=== PATIENT | female | born 1945 | race African-American/Black ===

== ENCOUNTER → 2017-01-08 | Outpatient (CLI) | payer MEDICARE, OTHER ==
--- NOTE | 2017-01-08 16:08 | RADIOLOGY REPORT (SQ) ---
EXAM DESCRIPTION: NM GASTRIC EMPTYING STUDY COMPLETED DATE/TIME: 01/08/2017 1:41 pm REASON FOR STUDY: ABDOMINAL DISTENSION (GASEOUS) R14.0 ABDOMINAL DISTENSION (GASEOUS) COMPARISON: None. RADIONUCLIDE AND DOSE: 2 millicuries Tc-99m Sulfur Colloid The route of agent administration: Oral. In an egg salad sandwich TECHNIQUE: Serial images acquired to 90 minutes with each image recorded over a 2-minute time frame. Image intensity values plotted with respect to time with linear regression algorithm. LIMITATIONS: None. FINDINGS: CALCULATED VALUE: 41.8 %. NORMAL VALUE: Greater than 50% emptying at 90 minutes. OTHER: No other significant finding. IMPRESSION: ABNORMAL GASTRIC EMPTYING. TECHNICAL DOCUMENTATION: JOB ID: [id number] [employer]- All Rights Reserved
== END ==
LOC: RAD 08:02
PROVIDERS: ATTEND Internal Medicine Gastroenterology
DX: R14.0 Abdominal distension (gaseous) (principal)
CPT/HCPCS: 78264; A9541

== ENCOUNTER → 2017-03-12 | Outpatient (CLI) | payer MEDICARE, OTHER ==
--- NOTE | 2017-03-12 15:19 | RADIOLOGY REPORT (SQ) ---
EXAM DESCRIPTION: C SP 4 OR 5 VIEWS COMPLETED DATE/TIME: 03/12/2017 3:02 pm REASON FOR STUDY: CERVICALGIA M54.2 CERVICALGIA COMPARISON: None. NUMBER OF VIEWS: Five views. TECHNIQUE: AP, lateral, obliques and odontoid radiographic images acquired of the cervical spine. LIMITATIONS: None. FINDINGS: MINERALIZATION: Normal. ALIGNMENT: Anatomic. VERTEBRAE: No acute compression changes are seen. There is some loss of height of the C3, C4, C5, an d C6 vertebrae. This appears chronic. Anterior osteophytes are present these levels. DISCS: Disc spaces are narrowed from C3-C5 and at C6-7. FORAMINA: No osteophytes or foraminal narrowing. LATERAL AND POSTERIOR ELEMENTS: Facets, lateral masses and spinous processes without significant find ings. HARDWARE: None in the spine. SOFT TISSUES: No masses or calcifications. Lung apices clear. OTHER: No other significant finding. IMPRESSION: Degenerative disc disease and spondylosis with no acute abnormality. There does not jerad ear to be significant foraminal narrowing. TECHNICAL DOCUMENTATION: JOB ID: [id number] [employer]- All Rights Reserved
== END ==
LOC: OD 14:47
PROVIDERS: ATTEND Family Medicine
DX: M54.2 Cervicalgia (principal)
CPT/HCPCS: 72050

== ENCOUNTER → 2017-09-28 | Outpatient (CLI) | payer MEDICARE, OTHER ==
--- NOTE | 2017-09-28 09:19 | WOMENS IMAGING REPORT ---
EXAM DESCRIPTION: BONE DENSITY HIP/SPINE COMPLETED DATE/TIME: 09/28/2017 8:34 am REASON FOR STUDY: AGE-RELATED OSTEOPROSIS; M81.0 M81.0 AGE-RELATED OSTEOPOROSIS W/O CURRENT PATHOLO AVA FRA COMPARISON: September 2006 TECHNIQUE: Dual-Energy X-ray Absorptiometry (DEXA) of the AP Spine and Hip. LIMITATIONS: None. FINDINGS: LUMBAR SPINE: The bone mineral density (BMD) measured from L1-L4 in the AP projection correlates with a T-score of 1.6, which is normal as defined by the World Health Organization. 42.3% increase as compared to the previous study HIP: The bone mineral density (BMD) measured in the left hip correlates with a T-score of -2.2, which is o steopenia as defined by the World Health Organization. -7.0% decrease as compared to the previous st ud IMPRESSION: 1. LUMBAR SPINE: Normal 2. HIP: Osteopenia COMMENT: The World Health Organization defines low BMD as follows: T-score: Normal: Greater than -1.0 Osteopenia: Between -1.0 and -2.5 Osteoporosis: Less than -2.5 without fractures Established osteoporosis: Less than -2.5 with fractures In general, you may wish to consider: Diagnosis Treatment Follow-up DEXA Normal BMD Prevention 2-3 years Osteopenia Prevention/Therapy 1-2 years Osteoporosis Therapy Yearly TECHNICAL DOCUMENTATION: JOB ID: [id number]- All Rights Reserved Reading location - IP/workstation name: [email or web address]
== END ==
LOC: WI 08:17
PROVIDERS: ATTEND Family Medicine
DX: M81.0 Age-related osteoporosis without current pathological fracture (principal)
CPT/HCPCS: 77080

== ENCOUNTER → 2019-07-28 | Outpatient (CLI) | payer MEDICARE, OTHER ==
--- NOTE | 2019-07-28 16:23 | RADIOLOGY REPORT (SQ) ---
EXAM DESCRIPTION: HIP LEFT AP/LATERAL COMPLETED DATE/TIME: 07/28/2019 3:13 pm REASON FOR STUDY: INJURY OF LEFT HIP;ACUTE JAMIN. LOW BACK PAIN WITH LEFT-SIDED SCIATICA M54.42 LUMBA GO WITH SCIATICA, LEFT SIDE S79.912A UNSPECIFIED INJURY OF LEFT HIP, INITIAL ENCOUNTER COMPARISON: None. NUMBER OF VIEWS: Two views. TECHNIQUE: AP pelvis and additional frog-leg view of the left hip. LIMITATIONS: None. FINDINGS: MINERALIZATION: Normal. LEFT HIP: No fracture or dislocation. No worrisome bone lesions. RIGHT HIP: No fracture or dislocation. No worrisome bone lesions. PUBIS AND ISCHIUM: No fracture. PELVIS: No fracture. SACRUM: No fracture or dislocation. No worrisome bone lesions. LOWER LUMBAR SPINE: Lower lumbar degenerative disc disease and spondylosis. SOFT TISSUES: No findings. OTHER: No other significant finding. IMPRESSION: Normal hip. Lumbar degenerative changes. TECHNICAL DOCUMENTATION: JOB ID: [id number] [employer]- All Rights Reserved Reading location - IP/workstation name: [email or web address]
--- NOTE | 2019-07-28 16:25 | RADIOLOGY REPORT (SQ) ---
EXAM DESCRIPTION: LUMBAR SPINE COMPLETE COMPLETED DATE/TIME: 07/28/2019 3:13 pm REASON FOR STUDY: LUMBAGO WITH SCIATICA, LEFT SIDE M54.42 LUMBAGO WITH SCIATICA, LEFT SIDE S79.912A UNSPECIFIED INJURY OF LEFT HIP, INITIAL ENCOUNTER COMPARISON: None. NUMBER OF VIEWS: Five views including obliques. TECHNIQUE: AP, lateral, oblique, and sacral radiographic images acquired of the lumbar spine. LIMITATIONS: None. FINDINGS: MINERALIZATION: Normal. SEGMENTATION: Normal. No transitional anatomy. ALIGNMENT: Mild anterolisthesis of L5 on S1. Mild levoscoliosis. VERTEBRAE: Maintained height. No fracture or worrisome bone lesion. DISCS: Disc spaces are narrowed from L2 to L5 with small marginal osteophytes. POSTERIOR ELEMENTS: Hypertrophic facet changes are present from L4-S1. HARDWARE: None in the spine. PARASPINAL SOFT TISSUES: Normal. PELVIS: Intact as visualized. No fractures or worrisome bone lesions. SI joints intact. OTHER: No other significant finding. IMPRESSION: Scoliosis. Anterolisthesis of L5 on S1. Spondylosis. Facet arthropathy. Degenerative disc disease. TECHNICAL DOCUMENTATION: JOB ID: [id number]- All Rights Reserved Reading location - IP/workstation name: [email or web address]
== END ==
LOC: OD 14:53
PROVIDERS: ATTEND Family Medicine
DX: S79.912A Unspecified injury of left hip, initial encounter (principal); X58.XXXA Exposure to other specified factors, initial encounter; M51.16 Intervertebral disc disorders with radiculopathy, lumbar region; M41.86 Other forms of scoliosis, lumbar region
CPT/HCPCS: 72110

== ENCOUNTER 2019-09-12 11:00 | Emergency (ER) | payer MEDICARE, OTHER ==
[2019-09-12 11:05] VITALS: BP 140/63
--- NOTE | 2019-09-12 11:24 | ER Document Report ---
HPI - HPI Time Seen by Provider: 09/12/19 11:15 Pain Level: 1 Notes: Patient is a 74-year-old female with a history of high blood pressure who presents complaining of left lower jaw pain is been present for the past 2 days. She has noticed some dryness to her throat, h/o tonsillectomy otherwise. She is able to eat and drink without difficulty. She is urinating normally and having normal bowel movements. Patient is aware that her dentition is poor otherwise. She has no other concerns or complaints. No drooling or hoarseness. Denies any headache, fever, head injury, neck pain, changes in vision/speech/mentation/hearing, URI, chest pain, palpitations, syncope, cough, shortness of breath, wheeze, dyspnea, abdominal pain, nausea/vomiting/diarrhea, urinary retention, dysuria, hematuria, or rash. - ROS Systems Reviewed and Negative: Yes All other systems reviewed and negative Past Medical History - Social History Smoking Status: Never Smoker Family History: Reviewed & Not Pertinent Patient has suicidal ideation: No Patient has homicidal ideation: No - Past Medical History Cardiac Medical History: Reports: Hx Hypercholesterolemia, Hx Hypertension GI Medical History: Reports: Hx Gastroesophageal Reflux Disease Past Surgical History: Reports: Hx Breast Surgery - reduction, Hx Orthopedic Surgery - Right hand x6, Left knee replace, left shoulder, Hx Tonsillectomy - Immunizations Hx Diphtheria, Pertussis, Tetanus Vaccination: Yes Vertical Provider Document - CONSTITUTIONAL Agree With Documented VS: Yes Notes: PHYSICAL EXAMINATION: GENERAL: Well-appearing, well-nourished and in no acute distress. HEAD: Atraumatic, normocephalic. EYES: Pupils equal round and reactive to light, extraocular movements intact, sclera anicteric, conjunctiva are normal. ENT: Nares patent and without discharge. oropharynx clear without exudates. No tonsilar hypertrophy or erythema. Moist mucous membranes. No sinus tenderness. Uvula midline. No palatine shift. No tongue protrusion. No respiratory compromise. Mouth: Poor dentition. + severe decay and mild gingivitis. No obvious abscess or discharge noted. + very mild left lower facial swelling. No fluctuance, erythema, or induration noted. NECK: Normal range of motion, supple without lymphadenopathy. No rigidity/meningismus. LUNGS: Breath sounds clear to auscultation bilaterally and equal. No wheezes rales or rhonchi. HEART: Regular rate and rhythm without murmurs, rubs, gallops. NEUROLOGICAL: Cranial nerves grossly intact. Normal speech, normal gait. PSYCH: Normal mood, normal affect. SKIN: Warm, Dry, normal turgor, no rashes or lesions noted. - INFECTION CONTROL TRAVEL OUTSIDE OF THE [place] IN LAST 30 DAYS: No Course - Re-evaluation Re-evalutation: 09/12/19 11:26 Patient is an afebrile, well-hydrated, 74-year-old male who presents to the ED with mild left lower jaw swelling, possible dental etiology with poor dentition. Vitals are acceptable. PE is otherwise unremarkable. No I&D, labs, or imaging warranted at this time based on H&P. I will send her home with a prescription for clindamycin. Low suspicion for any meningitis, sepsis, peritonsillar/pharyngeal abscess, respiratory compromise, Emerson's, temporal arteritis, or other emergent systemic condition at this time. Patient is aware this condition can change from initial presentation and she needs to monitor symptoms closely. Conservative measures otherwise for symptoms. Call to schedule an appointment with a dentist for further evaluation and management. Recheck with your PCM this week as well. Return to the ED with any worsening/concerning symptoms otherwise as reviewed in discharge. Patient is in agreement. - Vital Signs Vital signs: Temp Pulse Resp BP Pulse Ox 99.2 F 90 16 140/63 H 98 09/12/19 11:01 09/12/19 11:01 09/12/19 11:01 09/12/19 11:09/12/19 11:01 Discharge - Discharge Clinical Impression: Jaw swelling Condition: Stable Disposition: HOME, SELF-CARE Additional Instructions: [place] and floss twice daily Maintain fluid intake Take antibiotics as directed Mouthwash, salt water gargles, peroxide rinse as needed Tylenol/ibuprofen as needed Recheck with PCM on Sunday Call and schedule an appointment with your dentist for further evaluation Return to the ED with any worsening symptoms and/or development of fever, headache, facial swelling, swelling of lips/tongue/throat, trouble swallowing, drooling, hoarseness, neck pain/stiffness, chest pain, palpitations, syncope, shortness of breath, trouble breathing, abdominal pain, n/v/d, numbness/tingling, or other worsening symptoms that are concerning to you. Prescriptions: Clindamycin HCl 300 mg PO QID #40 capsule Forms: Elevated Blood Pressure Referrals: JAYJAY HALL DO [Primary Care Provider] - 09/15/19
== END 2019-09-12 11:23 | disposition home or self-care (01) ==
LOC: ER 11:00
DX: M26.69 Other specified disorders of temporomandibular joint (principal); R68.84 Jaw pain; K05.10 Chronic gingivitis, plaque induced; E78.00 Pure hypercholesterolemia, unspecified; I10 Essential (primary) hypertension; Z96.652 Presence of left artificial knee joint
CPT/HCPCS: 99283